=== PATIENT | female | born 1985 | race Caucasian/White ===

== ENCOUNTER → 2021-01-09 | Outpatient (CLI) | payer OTHER ==
[2021-01-09 20:30] LABS: HEMOGLOBIN 16.6 gm/dl (12.3-15.3); RED BLOOD COUNT 5.05 M/UL (4.00-5.10); WHITE BLOOD COUNT 8.9 K/UL (4.5-11.0)
[2021-01-09 20:49] LABS: BUN/CREATININE RATIO 14 (0-10)
[2021-01-11 07:13] LABS: VITAMIN D, 25-HYDROXY 34.4 ng/mL (30.0-100.0)
[2021-01-11 08:15] LABS: LUTEINIZING HORMONE(LH) 36.5 mIU/mL (.)
== END ==
LOC: LAB 19:06
PROVIDERS: Nurse Practitioner Family
DX: M54.5 Low back pain (principal); Z13.220 Encounter for screening for lipoid disorders; N91.2 Amenorrhea, unspecified
CPT/HCPCS: 80053; 80061; 81001; 82670; 83001; 83002; 84436; 84439; 84443; 84702; 85025; 87086

== ENCOUNTER → 2021-02-09 | Outpatient (CLI) | payer OTHER | LOC: KOH-I 01-31 15:00 | DX: R10.9 Unspecified abdominal pain (principal); R51.9 Headache, unspecified; M54.5 Low back pain; K42.9 Umbilical hernia without obstruction or gangrene; Z90.49 Acquired absence of other specified parts of digestive tract | CPT/HCPCS: 74176 ==

== ENCOUNTER → 2021-04-20 | Day surgery (SDC) | payer OTHER ==
[~2021-04-20] MED LIST: BUPROPION XL150 MG PO; COLACE100 MG PO; COZAAR 50MG TAB50 MG PO; FAMOTIDINE20 MG PO; PERCOCET 5-3251 EACH PO; ZOFRAN ODT 4 MG4 MG GT
== END | disposition home or self-care (01) ==
LOC: OR 05:48
DX: K42.9 Umbilical hernia without obstruction or gangrene (principal); I10 Essential (primary) hypertension; F17.210 Nicotine dependence, cigarettes, uncomplicated; E66.01 Morbid (severe) obesity due to excess calories; Z68.41 Body mass index [BMI] 40.0-44.9, adult; Z88.2 Allergy status to sulfonamides; Z79.899 Other long term (current) drug therapy
CPT/HCPCS: C1781; J0690; J1100; J1170; J1885; J2001; J2250; J2405; J2704; J2710; J3010; J7030; J7120